=== PATIENT | female | born 1960 ===

== ENCOUNTER 2018-05-05 12:20 | Emergency (ER) | payer OTHER ==
[~2018-05-05] VITALS: Ht 157.5 cm; Wt 61.2 kg
[~2018-05-05 12:20] MED LIST: SERTRALINE HCL25 MG PO; TUSICOF LIQUID120 ML PO
[2018-05-05] MEDS ORDERED: ZYRTEC10 MG PO (13:05)
== END 2018-05-05 18:33 | disposition home or self-care (01) ==
LOC: ER 12:20
DX: K52.9 Noninfective gastroenteritis and colitis, unspecified (principal)